=== PATIENT | female | born 1990 | race African-American/Black ===

== ENCOUNTER 2021-03-06 01:37 | Inpatient (IN) ==
[2021-03-06 02:14] LABS: Bilirubin,Urine Negative (Negative); Blood, Urine Moderate mg/dL (Negative); Glucose,Urine (UA) Negative (Negative); Ketones,Urine Negative (Negative); Mucus,Urine Occasional /LPF (Occasional); Nitrite,Urine Negative (Negative); Protein,Urine 30 MG/DL; RBC,Urine 7 /HPF (0-4); Squamous Epithelial Cell,Urine Occasional /HPF (0-10); Urine Appearance CLEAR (Clear); Urine Color Yellow (Yellow); Urine Specific Gravity 1.016 (1.001-1.035)
[2021-03-06] MEDS ORDERED: ONDANSETRON 4 MG/2 ML VIAL IV ONE ×2 (02:26→05:02)
[2021-03-06] MEDS ORDERED: LACTATED RINGERS 1,000 ML IV ONE (02:26)
[2021-03-06] MEDS ORDERED: BUTORPHANOL 2 MG/ML VIAL IV ONE (02:26)
[2021-03-06] MEDS ORDERED: MEPERIDINE 25 MG/1 ML VIAL IV ONE (04:39)
[2021-03-06] MEDS ORDERED: ONDANSETRON 4 MG/2 ML VIAL IV PRN (04:58)
[2021-03-06] MEDS ORDERED: BUTORPHANOL 2 MG/ML VIAL IV PRN (04:58)
[2021-03-06] MEDS ORDERED: MEPERIDINE 50 MG/1 ML VIAL IV PRN ×2 (04:58→08:20)
[2021-03-06] MEDS ORDERED: MEPERIDINE 50 MG/1 ML VIAL IV ONE (05:00)
[2021-03-06] MEDS ORDERED: diphenhydrAMINE 50 MG/1 ML VIAL IV PRN ×2 (05:02)
[2021-03-06] MEDS ORDERED: ePHEDrine 50 MG/ML VIAL IV PRN (05:02)
[2021-03-06] MEDS ORDERED: hydrOXYzine HCL 25 MG/1 ML VIAL IM PRN (05:02)
[2021-03-06] MEDS ORDERED: PROMETHAZINE 25 MG/1 ML VIAL IM ONE (05:02)
[2021-03-06] MEDS ORDERED: NALOXONE 0.4 MG/ML VIAL IV PRN (05:02)
[2021-03-06] MEDS ORDERED: ePHEDrine 50 MG/ML VIAL IV ONE (05:05)
[2021-03-06] MEDS ORDERED: FAMOTIDINE 20 MG/2 ML VIAL IV ONE (05:05)
[2021-03-06] MEDS ORDERED: CITRIC ACID/SODIUM CITRATE 30 ML UDCUP PO ONE (05:05)
[2021-03-06] MEDS ORDERED: AMPICILLIN INJ 2,000 MG in SODIUM CHLORIDE 0.9% 100 ML IV ONE (05:06)
[2021-03-06] MEDS ORDERED: AMPICILLIN 2,000 MG VIAL ONE (05:07)
[2021-03-06] MEDS ORDERED: SODIUM CHLORIDE 0.9% 100 ML IV ONE (05:10)
[2021-03-06] MEDS: LACTATED RINGERS 1,000 ML IV SCH ×2 (05:26→16:50)
[2021-03-06 05:27] LABS: Basophils % 0.2 % (0.0-0.8); Eosinophils # 0.1 10*3/uL (0.0-0.87); Eosinophils % 0.6 % (0.00-10.9); Hematocrit 28.3 VOL% (35.7-47.0); Hemoglobin 9.5 GM/DL (12.0-16.0); Immature Granulocytes Absolute 0.13 #; Lymphocytes # 2.1 10*3/uL (1.4-4.0); Lymphocytes % 16.3 % (21.3-54.2); Mean Corpuscular HGB Conc 33.6 GM/DL (32-36); Mean Corpuscular Volume 98.6 FL (87-102); Mean Platelet Volume 11.2 FL (9.6-12.0); Monocytes % 6.9 % (1.7-12.7); Platelet Count 162 T/CUMM (130-400); Red Blood Count 2.87 MC/CUMM (3.8-5.5); Red Cell Distribution Width 13.3 % (9.3-17.3); White Blood Count 12.8 T/CUMM (4-12)
[2021-03-06] MEDS ORDERED: LACTATED RINGERS 1,000 ML IV SCH (05:30)
[2021-03-06] MEDS ORDERED: fentaNYL 2 MCG/ROPIV 0.2% EPID 100 ML EPIDURAL SCH (05:30)
[2021-03-06 05:54] LABS: Albumin 2.6 G/DL (3.4-5.0); Bilirubin,Total 0.7 MG/DL (0.20-1.00); Calcium 8.6 MG/DL (8.5-10.1); Osmolality,Calculated 272.7 MOS/KG (273-304); Total Protein 6.8 G/DL (6.4-8.2)
[2021-03-06] MEDS ORDERED: METHYLERGONOVINE 0.2 MG/1 ML AMP IM ONE (08:20)
[2021-03-06] MEDS ORDERED: miSOPROStoL 200 MCG TABLET PO ONE (08:20)
[2021-03-06] MEDS ORDERED: CARBOPROST TROMETHAMINE 250 MCG/ML AMP IM ONE ×2 (08:20→16:59)
[2021-03-06] MEDS ORDERED: LIDOCAINE 1% 20 ML VIAL IM ONE (08:20)
[2021-03-06] MEDS ORDERED: OXYTOCIN/LR 20 UNIT/1,000 ML BAG IV SCH (08:30)
[2021-03-06] MEDS ORDERED: LIDOCAINE 1% 50 ML VIAL ONE (08:36)
[2021-03-06] MEDS ORDERED: AMPICILLIN INJ 1,000 MG in SODIUM CHLORIDE 0.9% 100 ML IV ONE (09:34)
[2021-03-06 14:16] LABS: Bacteria,Urine Occasional /HPF (Few); Bilirubin,Urine Negative (Negative); Blood, Urine Small mg/dL (Negative); Glucose,Urine (UA) Negative (Negative); Ketones,Urine Negative (Negative); Nitrite,Urine Negative (Negative); Protein,Urine Negative; RBC,Urine 1 /HPF (0-4); Squamous Epithelial Cell,Urine Occasional /HPF (0-10); Urine Appearance CLEAR (Clear); Urine Color Yellow (Yellow); Urine Specific Gravity 1.011 (1.001-1.035); Urine Urobilinogen < 2.0 EU/DL (0.2-1.0)
[2021-03-06] MEDS: AMPICILLIN INJ 1,000 MG in SODIUM CHLORIDE 0.9% 100 ML IV SCH ×2 (14:37→17:58)
[2021-03-06] MEDS ORDERED: miSOPROStoL 200 MCG TABLET ONE (16:59)
[2021-03-06] MEDS ORDERED: METHYLERGONOVINE 0.2 MG/1 ML AMP ONE (16:59)
[2021-03-06 17:26] LABS: Cord Arterial Blood HCO3 20.6 MMOL/L
[2021-03-06 17:29] LABS: Cord Venous Blood HCO3 22.7 MMOL/L; Cord Venous Blood PCO2 51.4 MMHG; Cord Venous Blood PO2 25.9
[2021-03-06] MEDS ORDERED: HYDROCORTISONE 2.5% RECTAL CREAM 30 GM TUBE TOP PRN (19:48)
[2021-03-06] MEDS ORDERED: MEASLES/MUMPS/RUBELLA VACCINE 0.5 ML VIAL SUBCUT ONE (19:48)
[2021-03-06] MEDS ORDERED: BISACODYL 10 MG SUPP RECTAL PRN (19:48)
[2021-03-06] MEDS ORDERED: LANOLIN 50% CREAM 0.3 OZ TUBE TOP PRN (19:48)
[2021-03-06] MEDS ORDERED: WITCH HAZEL PADS 100/JAR TOP PRN (19:48)
[2021-03-06] MEDS ORDERED: ACETAMINOPHEN 325 MG TABLET PO PRN (19:48)
[2021-03-06] MEDS ORDERED: oxyCODONE/ACETAMINOPHEN 5-325 MG TABLET PO PRN (19:48)
[2021-03-06] MEDS ORDERED: DIPH/TET/ACEL PERT BOOSTER VACCINE 0.5 ML VIAL IM ONE (19:48)
[2021-03-06] MEDS ORDERED: OXYTOCIN/LR 20 UNIT/1,000 ML BAG IV ONE (19:48)
[2021-03-06] MEDS ORDERED: BENZOCAINE 20%/MENTHOL 0.5% SPRAY 56 GM CAN TOP PRN (19:48)
[2021-03-06] MEDS ORDERED: RHO(D) IMMUNE GLOBULIN 300 MCG SYRINGE IM ONE (19:48)
[2021-03-06] MEDS: IBUPROFEN 800 MG TABLET PO PRN (20:01)
[2021-03-07 06:15] LABS: Basophils % 0.3 % (0.0-0.8); Eosinophils # 0.1 10*3/uL (0.0-0.87); Eosinophils % 0.5 % (0.00-10.9); Hematocrit 24.8 VOL% (35.7-47.0); Hemoglobin 8.4 GM/DL (12.0-16.0); Immature Granulocytes % 0.6 %; Immature Granulocytes Absolute 0.06 #; Lymphocytes # 1.8 10*3/uL (1.4-4.0); Lymphocytes % 18.5 % (21.3-54.2); Mean Corpuscular HGB Conc 33.9 GM/DL (32-36); Mean Corpuscular Volume 98.8 FL (87-102); Mean Platelet Volume 10.8 FL (9.6-12.0); Monocytes % 8.1 % (1.7-12.7); Platelet Count 141 T/CUMM (130-400); Red Blood Count 2.51 MC/CUMM (3.8-5.5); Red Cell Distribution Width 13.5 % (9.3-17.3); White Blood Count 9.8 T/CUMM (4-12)
[2021-03-07] MEDS: DOCUSATE SODIUM 100 MG CAPSULE PO SCH ×3 (06:30→21:06)
[2021-03-07] MEDS: IBUPROFEN 800 MG TABLET PO PRN ×2 (09:59→18:22)
[2021-03-07] MEDS: oxyCODONE/ACETAMINOPHEN 5-325 MG TABLET PO PRN ×2 (12:28→18:31)
[2021-03-07] MEDS ORDERED: MAGNESIUM HYDROXIDE SUSP 30 ML UDCUP PO PRN (18:27)
[2021-03-07] MEDS ORDERED: POLYETHYLENE GLYCOL POWDER 17 GM PACK PO PRN (21:26)
[2021-03-08] MEDS ORDERED: DIPH/TET/ACEL PERT BOOSTER VACCINE 0.5 ML VIAL IM ONE (07:33)
[2021-03-08 07:40] VITALS: BP 133/69
[2021-03-08] MEDS: IBUPROFEN 800 MG TABLET PO PRN (07:59)
[2021-03-08] MEDS: DOCUSATE SODIUM 100 MG CAPSULE PO SCH (07:59)
== END 2021-03-08 10:50 | disposition home or self-care (01) | DRG 560 ==
LOC: N.LDOUT 01:37 → N.LD 01:43 → N.OB 20:38
PROVIDERS: ADMIT Obstetrics & Gynecology; ATTEND Specialist

== ENCOUNTER 2022-04-16 22:04 | Inpatient (IN) ==
[2022-04-16] MEDS ORDERED: ONDANSETRON 4 MG/2 ML VIAL IV PRN (22:52)
[2022-04-16] MEDS ORDERED: LACTATED RINGERS 500 ML IV PRN (22:52)
[2022-04-16] MEDS ORDERED: TRANEXAMIC ACID 1,000 MG in SODIUM CHLORIDE 0.9% 100 ML IV PRN (22:52)
[2022-04-16] MEDS ORDERED: CARBOPROST TROMETHAMINE 250 MCG/ML AMP IM PRN (22:52)
[2022-04-16] MEDS ORDERED: METHYLERGONOVINE 0.2 MG/1 ML AMP IM PRN (22:52)
[2022-04-16] MEDS ORDERED: miSOPROStoL 200 MCG TABLET RECTAL PRN (22:52)
[2022-04-16] MEDS ORDERED: BUTORPHANOL 1 MG/ML VIAL IV PRN (22:52)
[2022-04-16] MEDS ORDERED: OXYTOCIN/LR 20 UNIT/1,000 ML BAG IV ONE ×2 (22:52→23:57)
[2022-04-16] MEDS ORDERED: LACTATED RINGERS 250 ML IV ONE (22:52)
[2022-04-16 22:55] LABS: Bilirubin,Urine Negative (Negative); Glucose,Urine (UA) Negative (Negative); Ketones,Urine Negative (Negative); Nitrite,Urine Negative (Negative); Protein,Urine Trace mg/dL (Negative); Urine Appearance Clear (Clear); Urine Color Yellow (Yellow); Urine pH 6.5 (4.5-8.0)
[2022-04-16 22:56] LABS: Blood, Urine Trace mg/dL (Negative)
[2022-04-16 22:57] LABS: Amorphous Crystals,Urine Occasional /HPF (Few); Bacteria,Urine Occasional /HPF (Few); Mucus,Urine Few /LPF (Occasional); RBC,Urine 6 /HPF (0-4); Squamous Epithelial Cell,Urine Few /HPF (0-10)
[2022-04-16] MEDS ORDERED: OXYTOCIN/LR 20 UNIT/1,000 ML BAG IV SCH (23:00)
[2022-04-16] MEDS ORDERED: LACTATED RINGERS 1,000 ML IV SCH ×2 (23:00→23:45)
[2022-04-16 23:23] LABS: Basophils % 0.1 % (0.0-0.8); Eosinophils # 0.1 10*3/uL (0.0-0.87); Eosinophils % 0.5 % (0.00-10.9); Hematocrit 30.5 VOL% (35.7-47.0); Hemoglobin 10.5 GM/DL (12.0-16.0); Immature Granulocytes % 0.9 %; Lymphocytes # 1.8 10*3/uL (1.4-4.0); Lymphocytes % 16.4 % (21.3-54.2); Mean Corpuscular HGB Conc 34.4 GM/DL (32-36); Mean Corpuscular Volume 96.8 FL (87-102); Mean Platelet Volume 10.9 FL (9.6-12.0); Monocytes # 0.8 10*3/uL (0.11-0.8); Monocytes % 7.1 % (1.7-12.7); Platelet Count 184 T/CUMM (130-400); Red Blood Count 3.15 MC/CUMM (3.8-5.5); White Blood Count 11.1 T/CUMM (4-12)
[2022-04-16] MEDS ORDERED: hydrOXYzine HCL 25 MG/1 ML VIAL IM PRN (23:44)
[2022-04-16] MEDS ORDERED: PROMETHAZINE 25 MG/1 ML VIAL IM ONE (23:44)
[2022-04-16] MEDS ORDERED: diphenhydrAMINE 50 MG/1 ML VIAL IV PRN ×2 (23:44)
[2022-04-16] MEDS ORDERED: ONDANSETRON 4 MG/2 ML VIAL IV ONE (23:44)
[2022-04-16] MEDS ORDERED: ePHEDrine 50 MG/ML VIAL IV PRN (23:44)
[2022-04-16] MEDS ORDERED: LACTATED RINGERS 250 ML IV PRN (23:44)
[2022-04-16] MEDS ORDERED: NALOXONE 0.4 MG/ML VIAL IV PRN (23:44)
[2022-04-16] MEDS ORDERED: fentaNYL 2 MCG/ROPIV 0.2% EPID 100 ML EPIDURAL SCH (23:45)
[2022-04-16] MEDS ORDERED: FAMOTIDINE 20 MG/2 ML VIAL IV ONE ×2 (23:52)
[2022-04-16] MEDS ORDERED: CITRIC ACID/SODIUM CITRATE 30 ML UDCUP PO ONE (23:52)
[2022-04-16] MEDS ORDERED: TRANEXAMIC ACID 1,000 MG/10 ML VIAL ONE (23:57)
[2022-04-16] MEDS ORDERED: miSOPROStoL 200 MCG TABLET ONE (23:57)
[2022-04-16] MEDS ORDERED: SODIUM CHLORIDE 0.9% 100 ML IV ONE (23:57)
[2022-04-16] MEDS ORDERED: METHYLERGONOVINE 0.2 MG/1 ML AMP ONE (23:58)
[2022-04-16] MEDS ORDERED: CARBOPROST TROMETHAMINE 250 MCG/ML AMP IM ONE (23:58)
[2022-04-17] MEDS ORDERED: DIPH/TET/ACEL PERT BOOSTER VACCINE 0.5 ML VIAL IM ONE (00:35)
[2022-04-17] MEDS ORDERED: WITCH HAZEL PADS 100/JAR TOP PRN (00:35)
[2022-04-17] MEDS ORDERED: ONDANSETRON 4 MG/2 ML VIAL IV PRN (00:35)
[2022-04-17] MEDS ORDERED: LACTATED RINGERS 1,000 ML IV ONE (00:35)
[2022-04-17] MEDS ORDERED: MEASLES/MUMPS/RUBELLA VACCINE 0.5 ML VIAL SUBCUT ONE (00:35)
[2022-04-17] MEDS ORDERED: RHO(D) IMMUNE GLOBULIN 300 MCG SYRINGE IM ONE (00:35)
[2022-04-17] MEDS ORDERED: OXYTOCIN/LR 20 UNIT/1,000 ML BAG IV ONE (00:35)
[2022-04-17] MEDS ORDERED: BISACODYL 10 MG SUPP RECTAL PRN (00:35)
[2022-04-17] MEDS ORDERED: HYDROCORTISONE 2.5% RECTAL CREAM 30 GM TUBE TOP PRN (00:35)
[2022-04-17] MEDS ORDERED: LANOLIN 50% CREAM 0.3 OZ TUBE TOP PRN (00:35)
[2022-04-17] MEDS ORDERED: ACETAMINOPHEN 325 MG TABLET PO PRN (00:35)
[2022-04-17] MEDS: oxyCODONE/ACETAMINOPHEN 5-325 MG TABLET PO PRN ×4 (02:56→21:08)
[2022-04-17] MEDS: IBUPROFEN 600 MG TABLET PO PRN ×2 (04:27→11:57)
[2022-04-17 05:22] LABS: Basophils % 0.1 % (0.0-0.8); Eosinophils % 0.2 % (0.00-10.9); Hemoglobin 9.9 GM/DL (12.0-16.0); Immature Granulocytes % 0.9 %; Immature Granulocytes Absolute 0.14 #; Lymphocytes # 1.7 10*3/uL (1.4-4.0); Lymphocytes % 10.6 % (21.3-54.2); Mean Corpuscular HGB Conc 34.1 GM/DL (32-36); Mean Corpuscular Volume 98.6 FL (87-102); Mean Platelet Volume 11.4 FL (9.6-12.0); Monocytes # 0.9 10*3/uL (0.11-0.8); Monocytes % 5.8 % (1.7-12.7); Neutrophils % 82.4 % (38.7-73.9); Platelet Count 180 T/CUMM (130-400); Red Blood Count 2.94 MC/CUMM (3.8-5.5); White Blood Count 15.6 T/CUMM (4-12)
[2022-04-17] MEDS: DOCUSATE SODIUM 100 MG CAPSULE PO SCH ×2 (08:55→21:07)
[2022-04-17] MEDS ORDERED: MULTIVITAMIN (PRENATAL) TABLET PO SCH (09:00)
[2022-04-17] MEDS ORDERED: BENZOCAINE 20%/MENTHOL 0.5% SPRAY 56 GM CAN TOP PRN (12:51)
[2022-04-17] MEDS: IBUPROFEN 800 MG TABLET PO PRN (19:00)
[2022-04-18] MEDS: IBUPROFEN 800 MG TABLET PO PRN ×2 (02:18→11:11)
[2022-04-18] MEDS ORDERED: SIMETHICONE CHEW 80 MG TABLET PO PRN (02:20)
[2022-04-18] MEDS: oxyCODONE/ACETAMINOPHEN 5-325 MG TABLET PO PRN ×2 (03:39→11:12)
[2022-04-18] MEDS: DOCUSATE SODIUM 100 MG CAPSULE PO SCH (09:24)
[2022-04-18 15:08] VITALS: BP 123/77
== END 2022-04-18 15:29 | disposition home or self-care (01) | DRG 560 ==
LOC: N.LDOUT 22:04 → N.LD 22:04 → N.OB 04-17 02:25
PROVIDERS: ADMIT Obstetrics & Gynecology; ATTEND Specialist